=== PATIENT | female | born 1955 | race African-American/Black ===

== ENCOUNTER 2018-04-13 12:00 | Inpatient (IN) | payer OTHER ==
[2018-04-13 12:22] VITALS: BMI 40.0
--- NOTE | 2018-04-13 12:29 | DR.EXTPAIN ---
HPI - Time seen Time seen: 12:20 - PCP Primary Care Physician: madeleine - Complaint/Symptoms Chief Complaint Doctor Comments: Hx. from pt. and is as noted below. Chief Complaint:: pt has redness and warmth to lt lower leg, pt states" I hurt my baby toe last week and the toe nail came off, then my leg and foot started hurting, I had a blood clot before in my rt leg" - Nurses notes reviewed Nurses Notes Review: Yes - Source History Provided: Patient - Mode of arrival Mode of Arrival: Wheelchair - Timing Onset of Chief Complaint: 04/11/18 PMH - PMH Past Medical History: Yes Past Medical History: Diabetes Past Medical History Comment: chronic pain and hx of blood clot in rt leg Past Surgical History: Yes Surgical History: Hysterectomy - Family History History of Family Medical Conditions: No - Social History Does any household member use tobacco: No Alcohol Use: None Do you use any recreational Drugs:: No Lives With: Family Lives Where: Home - infectious screening In the last 2 months have you had wt loss of >10#?: NO Have you had fever, night sweats or hemotysis?: No Have you traveled outside the country in the last 6 months?: No Isolation: Standard ROS - Review of Systems Constitutional: No Symptoms Reported Eyes: No Symptoms Reported ENTM: No Symptoms Reported Respiratoy: No Symptoms Reported Cardiovascular: Edema (Lt. leg) Gastrointestinal/Abdominal: No Symptoms Reported Genitourinary: No Symptoms Reported Neurological: No Symptoms Reported Musculoskeletal: Leg (pain on left) Integumentary: Change in Color (erythema, lt. leg) Hematologic/Lymphatic: No Symptoms Reported Endocrine: No Symptoms Reported Psychiatric: No Symptoms Reported All Other Systems: Reviewed and Negative PE - Vital Signs Vitals: Temperature 97.7 F Pulse Rate 82 Respiratory Rate 18 Blood Pressure 136/86 O2 Sat by Pulse Oximetry 99 - General Limitations: No Limitations General Appearance: Alert, In No Apparent Distress - Head Head Exam: Normal Inspection - Eyes Eye exam: Normal Appearance - ENT ENT Exam: Normal Exam - Neck Neck Exam: Normal Inspection, Full ROM, Trachea Midline - Chest Chest Inspection: Normal Inspection, Symmetric Chest Wall Rise - Respiratory Respiratory Exam: Normal Lung Sounds Bilat - Cardiovascular Cardiovascular Exam: Regular Rate, Normal Rhythm, Normal Heart Sounds, +S1, +S2 - Abdominal Exam Abdominal Exam: Normal Inspection - Extremities Extremities Exam: Tenderness (lt. leg and calf), Edema (Lt. leg) - Lower Extremities Gait Exam: Not Tested/Not Observed - Back Back Exam: Normal Inspection - Neurological Neurological Exam: Alert, Oriented X3, CN II-XII Intact - Psychiatric Psychiatric Exam: Normal Affect, Normal Mood - Skin Skin Exam: Erythema (and warmth lt. leg.) ROR - Labs Reviewed Result Diagrams: 04/13/18 12:04/13/18 12:23 Laboratory: WBC 9.0 X10^3/uL (3.6-10.0) 04/13/18 12: RBC 4.53 X10^6/uL (3.5-5.4) 04/13/18 12: Hgb 12.9 g/dL (12.0-16.0) 04/13/18 12: Hct 38.6 % (36.0-47.0) 04/13/18 12: MCV 85.3 fL (80.0-100.0) 04/13/18 12: MCH 28.6 pg (27.0-34.0) 04/13/18 12: MCHC 33.5 g/dL (33.0-35.0) 04/13/18 12: RDW 14.3 % (11.6-16.5) 04/13/18 12: Plt Count 223 X10^3/uL (150.0-450.0) 04/13/18 12: Plt Count Comment Adequate (ADEQUATE) 04/13/18 12: MPV 7.1 fL (7.4-11.0) L 04/13/18 12:23 Neut % (Auto) 56.1 % (42.0-75.0) 04/13/18 12: Lymph % (Auto) 35.6 % (21.0-51.0) 04/13/18 12: [place] % (Auto) 6.4 % (0.0-13.0) 04/13/18 12: Eos % (Auto) 0.9 % (0.9-2.9) 04/13/18 12: Baso % (Auto) 1.0 % (0.2-1.0) 04/13/18 12:23 Neut # (Auto) 5.0 x10^3/uL (2.2-4.8) H 04/13/18 12:23 Lymph # (Auto) 3.2 X10^3/uL (1.3-2.9) H 04/13/18 12:23 [place] # (Auto) 0.6 x10^3/uL (0.3-0.8) 04/13/18 12:23 Eos # (Auto) 0.1 x10^3/uL (0.0-0.2) 04/13/18 12:23 Baso # (Auto) 0.1 X10^3/uL (0.0-0.1) 04/13/18 12:23 Absolute Nucleated RBC 0.0 /100WBC 04/13/18 12:23 Total Counted 100 04/13/18 12:23 Neutrophils % (Manual) 46 % (39-76) 04/13/18 12:23 Band Neutrophils % 4 % (0-10) 04/13/18 12:23 Lymphocytes % (Manual) 44 % (13-43) H 04/13/18 12:23 Monocytes % (Manual) 5 % (4-9) 04/13/18 12:23 Eosinophils % (Manual) 1 % (0-6) 04/13/18 12:23 Basophils % (Manual) 0 % (0-1) 04/13/18 12:23 Plt Morphology Comment Normal (NORMAL) 04/13/18 12:23 RBC Morphology Normal (NORMAL) 04/13/18 12:23 INR Target Range - 04/13/18 12:23 INR 1.41 (0.8-1.3) H 04/13/18 12:23 APTT 38.4 SECONDS (22.9-36.5) H 04/13/18 12:23 PTT Comment - 04/13/18 12:23 D-Dimer 125 ng/mL (0-400) 04/13/18 12:23 Sodium 135 mmol/L (136-145) L 04/13/18 12:23 Corrected Sodium 136 mmol/L (136-145) 04/13/18 12:23 Potassium 3.7 mmol/L (3.5-5.1) 04/13/18 12:23 Chloride 100 mmol/L (98-107) 04/13/18 12:23 Carbon Dioxide 30.7 mmol/L (21-32) 04/13/18 12:23 BUN 14 mg/dL (7-18) 04/13/18 12:23 Creatinine 1.10 mg/dL (0.55-1.02) H 04/13/18 12:23 Est GFR (MDRD) Af Amer > 60 (>60) 04/13/18 12:23 Est GFR (MDRD) Non-Af 53 (>60) L 04/13/18 12:23 Glucose 159 mg/dL (65-99) H 04/13/18 12:23 Calcium 8.1 mg/dL (8.5-10.1) L 04/13/18 12:23 Corrected Calcium TNP 04/13/18 12:23 Total Bilirubin 1.00 mg/dL (0.2-1.0) 04/13/18 12:23 AST 16 Units/L (15-37) 04/13/18 12:23 ALT 18 Units/L (12-78) 04/13/18 12:23 Alkaline Phosphatase 87 Units/L (46-116) 04/13/18 12:23 B-Natriuretic Peptide 7.4 pg/mL (0-79) 04/13/18 12:23 Total Protein 8.1 g/dL (6.4-8.2) 04/13/18 12:23 Albumin 3.4 g/dL (3.4-5.0) 04/13/18 12:23 Globulin 4.7 g/dL (2.5-4.5) H 04/13/18 12:23 Albumin/Globulin Ratio 0.7 Ratio (1.1-2.1) L 04/13/18 12:23 - XRAY XRAY Interpreted by: Radiologist (non-displaced fracture of distal phalanx of lt. 5th toe.) - Diagnosis Discharge Problem: Phlebitis, Fracture of toe of left foot - Discharge Plan Disposition: ADMITTED INPATIENT Condition: Stable - Follow ups/Referrals Follow ups/Referrals: NICOLE DUNN [Primary Care Provider] - 3 days - Instructions Instructions: Phlebitis, [id number]
[2018-04-13 12:34] LABS: BASOPHILS # (AUTO) 0.1 X10^3/uL (0.0-0.1); EOSINOPHILS # (AUTO) 0.1 x10^3/uL (0.0-0.2); EOSINOPHILS % (AUTO) 0.9 % (0.9-2.9); HEMATOCRIT 38.6 % (36.0-47.0); HEMOGLOBIN 12.9 g/dL (12.0-16.0); LYMPHOCYTES # (AUTO) 3.2 X10^3/uL (1.3-2.9); LYMPHOCYTES % (AUTO) 35.6 % (21.0-51.0); MEAN CORPUSCULAR HEMOGLOBIN 28.6 pg (27.0-34.0); MEAN CORPUSCULAR HGB CONC 33.5 g/dL (33.0-35.0); MEAN CORPUSCULAR VOLUME 85.3 fL (80.0-100.0); MEAN PLATELET VOLUME 7.1 fL (7.4-11.0); MONOCYTES # (AUTO) 0.6 x10^3/uL (0.3-0.8); MONOCYTES % (AUTO) 6.4 % (0.0-13.0); NEUTROPHILS % (AUTO) 56.1 % (42.0-75.0); PLATELET COUNT 223 X10^3/uL (150.0-450.0); RED BLOOD COUNT 4.53 X10^6/uL (3.5-5.4); RED CELL DISTRIBUTION WIDTH 14.3 % (11.6-16.5)
[2018-04-13 12:44] LABS: ALANINE AMINOTRANSFERASE 18 Units/L (12-78); ALBUMIN 3.4 g/dL (3.4-5.0); ALKALINE PHOSPHATASE 87 Units/L (46-116); ASPARTATE AMINO TRANSFERASE 16 Units/L (15-37); BLOOD UREA NITROGEN 14 mg/dL (7-18); CALCIUM 8.1 mg/dL (8.5-10.1); CARBON DIOXIDE 30.7 mmol/L (21-32); CHLORIDE 100 mmol/L (98-107); COR NA(FOR HYPERGLY) 136 mmol/L (136-145); SODIUM 135 mmol/L (136-145); TOTAL PROTEIN 8.1 g/dL (6.4-8.2); eGFR BLACK RACES > 60 (>60); eGFR NON BLACK RACES 53 (>60)
--- NOTE | 2018-04-13 12:46 | RAD ---
HISTORY: Injury to left 5th toe. Left foot pain. Study: Left foot: Three views Comparison: None Findings: Tarsal, metatarsal and phalangeal alignment is normal. Mild degenerative changes noted in the 1st ta rsal metatarsal joint with [id number] 1st metatarsal-phalangeal joint. Minimal degenerative ch anges present in several of the interphalangeal joints. There appears to be moderately severe soft t issue swelling over the dorsum of the mid and distal foot. There is suggestion of a nondisplaced phalangeal tuft fracture involving the 5th digit. No other acu te bony abnormalities are identified. Moderate calcaneal spurring is noted. Moderate enthesopathy i s noted at the Achilles tendon insertion. There is a mild diffuse degenerative change in the midfoot . IMPRESSION: 1. Degenerative change in the left foot as described above. 2. Findings suggesting a nondisplaced phalangeal tuft fracture involving the distal phalanx of the 5 th toe. 3. Extensive soft tissue swelling is present. Reported By:
[2018-04-13 13:00] LABS: BAND NEUTROPHILS % 4 % (0-10); BASOPHILS % (MANUAL) 0 % (0-1); PLATELET MORPHOLOGY COMMENT NORMAL (NORMAL)
[2018-04-13] MEDS ORDERED: ANCEF VIAL 1 GM 1 GM in NS 100 ML IV + SPIKE MINIBAG* 100 ML IV ONE (14:10)
[2018-04-13] MEDS ORDERED: HumuLIN R SUBCUT PRN (14:15)
[2018-04-13] MEDS ORDERED: NS 1000 ML 1,000 ML ONE (14:17)
[2018-04-13] MEDS ORDERED: ANCEF 1 GM IV PREMIX* 1 GM/50 ML BAG IV ONE (14:17)
[2018-04-13] MEDS: NS 1000 ML 1,000 ML IV SCH (14:26)
[2018-04-13] MEDS: NORCO 10/325 TAB PO SCH ×2 (17:24→23:32)
[2018-04-13 20:21] LABS: BILIRUBIN,URINE NEGATIVE (NEGATIVE); BLOOD/HEMOGLOBIN,URINE 3+ (NEGATIVE); GLUCOSE, URINE NEGATIVE (NEGATIVE); KETONES,URINE NEGATIVE (NEGATIVE); LEUKOCYTE ESTERASE ,URINE 1+ (NEGATIVE); NITRITES,URINE POSITIVE (NEGATIVE); PROTEIN,URINE NEGATIVE (NEGATIVE); UROBILINOGEN,URINE NORMAL (NORMAL)
[2018-04-13 20:48] LABS: APPEARANCE,URINE CLOUDY (CLEAR); BACTERIA,URINE 3+ /HPF (NEGATIVE); COLOR,URINE YELLOW (YELLOW); SQUAMOUS EPITHELIAL CELL,UR FEW /HPF (NEGATIVE)
[2018-04-13] MEDS: ANCEF VIAL 1 GM 1 GM in NS 100 ML IV + SPIKE MINIBAG* 100 ML IV SCH (21:27)
[2018-04-14] MEDS: NS 1000 ML 1,000 ML IV SCH ×2 (04:38→20:07)
[2018-04-14] MEDS: ANCEF VIAL 1 GM 1 GM in NS 100 ML IV + SPIKE MINIBAG* 100 ML IV SCH (07:15)
[2018-04-14] MEDS: NORCO 10/325 TAB PO SCH ×3 (07:15→22:45)
[2018-04-14 07:39] LABS: ALANINE AMINOTRANSFERASE 15 Units/L (12-78); ALBUMIN 2.7 g/dL (3.4-5.0); ALKALINE PHOSPHATASE 73 Units/L (46-116); ASPARTATE AMINO TRANSFERASE 10 Units/L (15-37); BLOOD UREA NITROGEN 13 mg/dL (7-18); CALCIUM 7.6 mg/dL (8.5-10.1); CARBON DIOXIDE 27.4 mmol/L (21-32); CHLORIDE 105 mmol/L (98-107); COR CA(FOR HYPOALB) 8.6 mg/dL (8.5-10.1); COR NA(FOR HYPERGLY) 139 mmol/L (136-145); CREATININE 0.96 mg/dL (0.55-1.02); SODIUM 139 mmol/L (136-145); eGFR BLACK RACES > 60 (>60); eGFR NON BLACK RACES > 60 (>60)
[2018-04-14 08:32] LABS: BASOPHILS # (AUTO) 0.1 X10^3/uL (0.0-0.1); BASOPHILS % (AUTO) 0.8 % (0.2-1.0); EOSINOPHILS # (AUTO) 0.2 x10^3/uL (0.0-0.2); HEMATOCRIT 37.7 % (36.0-47.0); HEMOGLOBIN 12.3 g/dL (12.0-16.0); LYMPHOCYTES # (AUTO) 3.8 X10^3/uL (1.3-2.9); LYMPHOCYTES % (AUTO) 49.2 % (21.0-51.0); MEAN CORPUSCULAR HEMOGLOBIN 28.4 pg (27.0-34.0); MEAN CORPUSCULAR HGB CONC 32.6 g/dL (33.0-35.0); MEAN CORPUSCULAR VOLUME 86.9 fL (80.0-100.0); MEAN PLATELET VOLUME 8.1 fL (7.4-11.0); MONOCYTES # (AUTO) 0.9 x10^3/uL (0.3-0.8); MONOCYTES % (AUTO) 11.7 % (0.0-13.0); NEUTROPHILS # (AUTO) 2.7 x10^3/uL (2.2-4.8); NEUTROPHILS % (AUTO) 35.3 % (42.0-75.0); PLATELET COUNT 190 X10^3/uL (150.0-450.0); RED BLOOD COUNT 4.33 X10^6/uL (3.5-5.4); RED CELL DISTRIBUTION WIDTH 14.9 % (11.6-16.5); WHITE BLOOD COUNT 7.8 X10^3/uL (3.6-10.0)
[2018-04-14 08:57] LABS: ANISOCYTOSIS SLIGHT; PLATELET MORPHOLOGY COMMENT NORMAL (NORMAL)
[2018-04-14] MEDS ORDERED: COUMADIN TAB 7.5 MG PO SCH ×2 (09:00→17:00)
[2018-04-14] MEDS ORDERED: ZOFRAN INJ 4 MG VIAL IVP ONE (09:49)
--- NOTE | 2018-04-14 09:53 | DR.H&P ---
H&P - History & Physical for Day of: H&P Date: 04/14/18 - Chief Complaint Chief Complaint: LLE PAIN, REDNESS SWELLING, DYSURIA - Allergies Allergies/Adverse Reactions: Allergies Allergy/AdvReac Type Severity Reaction Status Date / Time No Known Drug Allergies Allergy Verified 04/13/18 12:03 - History of Present Illness History of Present Illness: 63 BF ER ADMISSION WITH CO LLE REDNESS AND SWELLING , AFTER INJURY LEFT 5TH TOE. PT ALSO CO DYSURIA AND FOUL ODOR. PT HAD UTI IN ER. PT HAS PMH OF HTN, DM. PT ADMITTED FOR IV ATBX FOR CELLULITIS, URINE CULTURE COLLECTED. - Past Medical History Past Medical History: Diabetes, Hypertension - Past Surgical History Surgical History: Hysterectomy, Other - Family History Family Medical History: Diabetes Mellitus, Coronary Artery Disease, Hypertension - Social History Does patient currently use any type of tobacco product: No Have you used tobacco products in the last 12 months: No Type of Tobacco Use: None Does any household member use tobacco: No Alcohol Use: Occasionally Drug Use: Prescription Drugs - Medications Home Medications: Hydrocodone/Acetaminophen [Lorcet Hd 10-325 mg Tablet] 1 each PO Q8H 04/13/18 [ History Confirmed 04/13/18] Warfarin Sodium [Warfarin Sodium] 7.5 mg PO DAILY 04/13/18 [History Confirmed ] - Review of Systems Constitutional: No Symptoms Reported, Malaise Eyes: No Symptoms Reported ENT: No Symptoms Reported Respiratory: No Symptoms Reported Cardiovascular: Edema Gastrointestinal: Nausea Genitourinary: Dysuria Musculoskeletal: Leg Pain Skin: Other (LLE REDNESS) Neurological: No Symptoms Reported - Physical Exam Vital Signs: Temperature 98.6 F Pulse Rate [Left Brachial] 51 Pulse Rate 82 Respiratory Rate 16 Blood Pressure [Left Arm] 111/61 Blood Pressure 136/86 O2 Sat by Pulse Oximetry 99 Oriented: Normal Eyes: Normal Ear: Normal Nose: Normal Throat: Normal Respiratory: RLL Diminished, LLL Diminished Cardiovascular: Normal : Normal Auscultation: Bowel Sounds: Normal Palpation: Normal Tenderness: Suprapubic, Mild Skin: Normal, Red, Tender (LLE), Hot Musculoskeletal: Left, Leg, Swelling, Tender Affect: Anxious Speech Pattern: Clear, Appropriate - Assessment/Plan (1) Cellulitis Status: Acute Plan: ADMIT, IV ATBX, BP MONITORING. VERIFY HOME MEDS. URINE CULTURE. WOUND CARE, REPEAT AM LABS. DAILY PT/INR (2) UTI (urinary tract infection) Status: Acute (3) Fracture of toe of left foot Status: Acute (4) Phlebitis Status: Acute
[2018-04-14] MEDS ORDERED: FLAGYL TAB 500 MG PO SCH (10:00)
[2018-04-14] MEDS ORDERED: TEFLARO IV SCH (10:00)
[2018-04-14] MEDS ORDERED: ZOFRAN INJ 4 MG VIAL ONE (10:11)
[2018-04-14] MEDS: TEFLARO 600 MG in NS 100 ML IV + SPIKE MINIBAG* 100 ML IV SCH ×2 (10:18→20:20)
[2018-04-14] MEDS ORDERED: PHARMACY CONSULT - VANCOMYCIN XX SCH (12:00)
--- NOTE | 2018-04-14 12:07 | VAS ---
HISTORY: 63-year-old female with injury to the 5th toe and left foot pain with cellulitis of the left leg. Study: Duplex Doppler of the venous system left lower extremity. Comparison: None. TECHNIQUE: Multiple ahmadi scale and color flow Doppler images of the deep venous system were obtained of the left lower extremity. FINDINGS: The deep venous system of the left lower extremity was evaluated from the level of the common femoral vein through the popliteal vein. Normal color flow and augmentation can be observed. In addition, normal compression is seen throughout the deep venous system. IMPRESSION: 1. Negative for DVT. Reported By:
[2018-04-14 12:26] LABS: CHLAMYDIA TRACH URINE NOT DETECTED (NOT DETECT)
[2018-04-14] MEDS: GLUCOPHAGE XR PO SCH ×2 (12:34→21:10)
[2018-04-14] MEDS ORDERED: VANCOMYCIN 1 GM PREMIX (ADDVANTAGE) 250 ML IV ONE (18:14)
[2018-04-14] MEDS: VANCOMYCIN 1 GM PREMIX (ADDVANTAGE) 250 ML IV SCH (18:19)
[2018-04-15] MEDS ORDERED: FLAGYL TAB 250 MG PO ONE (04:44)
[2018-04-15] MEDS ORDERED: VANCOMYCIN HCL 1 GM VIAL ONE (04:51)
[2018-04-15] MEDS ORDERED: NS 250 ML IV 250 ML IV ONE (04:53)
[2018-04-15] MEDS: VANCOMYCIN 1 GM PREMIX (ADDVANTAGE) 250 ML IV SCH ×2 (05:24→18:50)
[2018-04-15] MEDS: NS 1000 ML 1,000 ML IV SCH ×3 (05:25→20:32)
[2018-04-15] MEDS: NORCO 10/325 TAB PO SCH ×3 (07:22→20:27)
[2018-04-15] MEDS ORDERED: MILK OF MAGNESIA PO PRN (07:28)
[2018-04-15 07:33] LABS: BASOPHILS # (AUTO) 0.1 X10^3/uL (0.0-0.1); BASOPHILS % (AUTO) 0.9 % (0.2-1.0); EOSINOPHILS # (AUTO) 0.2 x10^3/uL (0.0-0.2); HEMATOCRIT 34.2 % (36.0-47.0); HEMOGLOBIN 11.5 g/dL (12.0-16.0); LYMPHOCYTES # (AUTO) 2.6 X10^3/uL (1.3-2.9); LYMPHOCYTES % (AUTO) 45.7 % (21.0-51.0); MEAN CORPUSCULAR HEMOGLOBIN 28.7 pg (27.0-34.0); MEAN CORPUSCULAR HGB CONC 33.6 g/dL (33.0-35.0); MEAN CORPUSCULAR VOLUME 85.5 fL (80.0-100.0); MEAN PLATELET VOLUME 7.6 fL (7.4-11.0); MONOCYTES # (AUTO) 0.6 x10^3/uL (0.3-0.8); MONOCYTES % (AUTO) 10.5 % (0.0-13.0); NEUTROPHILS # (AUTO) 2.3 x10^3/uL (2.2-4.8); NEUTROPHILS % (AUTO) 39.9 % (42.0-75.0); PLATELET COUNT 203 X10^3/uL (150.0-450.0); RED CELL DISTRIBUTION WIDTH 14.4 % (11.6-16.5); WHITE BLOOD COUNT 5.7 X10^3/uL (3.6-10.0)
[2018-04-15 07:44] LABS: ALANINE AMINOTRANSFERASE 14 Units/L (12-78); ALBUMIN 2.6 g/dL (3.4-5.0); ALKALINE PHOSPHATASE 71 Units/L (46-116); ASPARTATE AMINO TRANSFERASE 12 Units/L (15-37); BLOOD UREA NITROGEN 13 mg/dL (7-18); CALCIUM 7.3 mg/dL (8.5-10.1); CARBON DIOXIDE 26.7 mmol/L (21-32); CHLORIDE 107 mmol/L (98-107); COR CA(FOR HYPOALB) 8.4 mg/dL (8.5-10.1); COR NA(FOR HYPERGLY) 140 mmol/L (136-145); SODIUM 140 mmol/L (136-145); TOTAL PROTEIN 6.6 g/dL (6.4-8.2); eGFR BLACK RACES > 60 (>60); eGFR NON BLACK RACES 59 (>60)
[2018-04-15] MEDS ORDERED: COLACE CAP 100 MG PO SCH (08:00)
[2018-04-15] MEDS: GLUCOPHAGE XR PO SCH ×3 (08:05→20:32)
[2018-04-15] MEDS: TEFLARO 600 MG in NS 100 ML IV + SPIKE MINIBAG* 100 ML IV SCH (08:05)
[2018-04-15] MEDS: ROCEPHIN VIAL 1 GM 1 GM in NS 100 ML IV + SPIKE MINIBAG* 100 ML IV SCH (17:30)
[2018-04-15] MEDS: COLACE CAP 100 MG PO SCH (20:26)
[2018-04-15] MEDS: COUMADIN TAB 7.5 MG PO SCH (20:26)
[2018-04-16] MEDS: NORCO 10/325 TAB PO SCH ×4 (00:45→22:03)
[2018-04-16] MEDS: NS 1000 ML 1,000 ML IV SCH ×4 (00:58→20:15)
[2018-04-16 05:58] LABS: CREATININE 0.95 mg/dL (0.55-1.02); VANCOMYCIN,TROUGH 7.7 ug/mL (15-20)
[2018-04-16 06:10] LABS: BASOPHILS % (AUTO) 0.8 % (0.2-1.0); EOSINOPHILS # (AUTO) 0.2 x10^3/uL (0.0-0.2); EOSINOPHILS % (AUTO) 3.4 % (0.9-2.9); HEMATOCRIT 34.9 % (36.0-47.0); HEMOGLOBIN 11.7 g/dL (12.0-16.0); LYMPHOCYTES # (AUTO) 2.7 X10^3/uL (1.3-2.9); LYMPHOCYTES % (AUTO) 46.9 % (21.0-51.0); MEAN CORPUSCULAR HEMOGLOBIN 28.6 pg (27.0-34.0); MEAN CORPUSCULAR HGB CONC 33.7 g/dL (33.0-35.0); MEAN PLATELET VOLUME 7.2 fL (7.4-11.0); MONOCYTES # (AUTO) 0.6 x10^3/uL (0.3-0.8); MONOCYTES % (AUTO) 10.9 % (0.0-13.0); NEUTROPHILS # (AUTO) 2.2 x10^3/uL (2.2-4.8); PLATELET COUNT 221 X10^3/uL (150.0-450.0); RED CELL DISTRIBUTION WIDTH 14.3 % (11.6-16.5); WHITE BLOOD COUNT 5.8 X10^3/uL (3.6-10.0)
[2018-04-16 06:16] LABS: ALANINE AMINOTRANSFERASE 13 Units/L (12-78); ALBUMIN 2.5 g/dL (3.4-5.0); ALKALINE PHOSPHATASE 70 Units/L (46-116); ASPARTATE AMINO TRANSFERASE 13 Units/L (15-37); BLOOD UREA NITROGEN 12 mg/dL (7-18); CALCIUM 7.5 mg/dL (8.5-10.1); CHLORIDE 106 mmol/L (98-107); COR CA(FOR HYPOALB) 8.7 mg/dL (8.5-10.1); CREATININE 0.97 mg/dL (0.55-1.02); SODIUM 139 mmol/L (136-145); TOTAL PROTEIN 6.7 g/dL (6.4-8.2); eGFR BLACK RACES > 60 (>60); eGFR NON BLACK RACES > 60 (>60)
[2018-04-16] MEDS: VANCOMYCIN 1 GM PREMIX (ADDVANTAGE) 250 ML IV SCH (06:29)
[2018-04-16] MEDS: GLUCOPHAGE XR PO SCH ×2 (08:15→20:15)
[2018-04-16] MEDS: ROCEPHIN VIAL 1 GM 1 GM in NS 100 ML IV + SPIKE MINIBAG* 100 ML IV SCH (08:16)
[2018-04-16] MEDS: VANCOMYCIN HCL 1 GM VIAL 1 GM in D5W 250 ML IV 250 ML IV SCH ×4 (09:09→23:03)
[2018-04-16] MEDS ORDERED: BUTT CREAM (COMPOUND) ONE (14:39)
[2018-04-16] MEDS ORDERED: BUTT CREAM (COMPOUND) TOP PRN (14:44)
[2018-04-16] MEDS: COUMADIN TAB 7.5 MG PO SCH (20:14)
[2018-04-16] MEDS: COLACE CAP 100 MG PO SCH (20:14)
[2018-04-17 06:22] LABS: BASOPHILS % (AUTO) 0.8 % (0.2-1.0); EOSINOPHILS # (AUTO) 0.2 x10^3/uL (0.0-0.2); EOSINOPHILS % (AUTO) 3.1 % (0.9-2.9); HEMOGLOBIN 12.1 g/dL (12.0-16.0); LYMPHOCYTES # (AUTO) 2.7 X10^3/uL (1.3-2.9); LYMPHOCYTES % (AUTO) 45.6 % (21.0-51.0); MEAN CORPUSCULAR HEMOGLOBIN 28.7 pg (27.0-34.0); MEAN CORPUSCULAR HGB CONC 33.7 g/dL (33.0-35.0); MEAN CORPUSCULAR VOLUME 85.1 fL (80.0-100.0); MEAN PLATELET VOLUME 7.2 fL (7.4-11.0); MONOCYTES # (AUTO) 0.6 x10^3/uL (0.3-0.8); MONOCYTES % (AUTO) 10.1 % (0.0-13.0); NEUTROPHILS # (AUTO) 2.4 x10^3/uL (2.2-4.8); NEUTROPHILS % (AUTO) 40.4 % (42.0-75.0); PLATELET COUNT 232 X10^3/uL (150.0-450.0); RED BLOOD COUNT 4.22 X10^6/uL (3.5-5.4); RED CELL DISTRIBUTION WIDTH 14.2 % (11.6-16.5); VANCOMYCIN,TROUGH 13.6 ug/mL (15-20); WHITE BLOOD COUNT 5.9 X10^3/uL (3.6-10.0)
[2018-04-17] MEDS: VANCOMYCIN HCL 1 GM VIAL 1 GM in D5W 250 ML IV 250 ML IV SCH ×2 (06:34→13:28)
[2018-04-17] MEDS: NORCO 10/325 TAB PO SCH ×2 (06:35→15:58)
[2018-04-17 06:51] LABS: ALANINE AMINOTRANSFERASE 12 Units/L (12-78); ALBUMIN 2.6 g/dL (3.4-5.0); ALKALINE PHOSPHATASE 74 Units/L (46-116); ASPARTATE AMINO TRANSFERASE 16 Units/L (15-37); BLOOD UREA NITROGEN 11 mg/dL (7-18); CALCIUM 7.8 mg/dL (8.5-10.1); CARBON DIOXIDE 25.9 mmol/L (21-32); CHLORIDE 104 mmol/L (98-107); COR CA(FOR HYPOALB) 8.9 mg/dL (8.5-10.1); CREATININE 0.91 mg/dL (0.55-1.02); SODIUM 137 mmol/L (136-145); TOTAL PROTEIN 6.9 g/dL (6.4-8.2); eGFR BLACK RACES > 60 (>60); eGFR NON BLACK RACES > 60 (>60)
[2018-04-17] MEDS: ROCEPHIN VIAL 1 GM 1 GM in NS 100 ML IV + SPIKE MINIBAG* 100 ML IV SCH (09:02)
[2018-04-17] MEDS: GLUCOPHAGE XR PO SCH (09:02)
[2018-04-17] MEDS: NS 1000 ML 1,000 ML IV SCH ×2 (09:03→17:25)
[2018-04-17 12:19] VITALS: BP 153/82
== END 2018-04-17 16:10 | disposition home or self-care (01) | DRG 603 ==
LOC: ER 12:12 → OBS 14:12 → ICU 04-15 14:57
PROVIDERS: ADMIT Obstetrics & Gynecology Obstetrics; ATTEND Obstetrics & Gynecology Obstetrics
DX: L03.116 Cellulitis of left lower limb (principal); N39.0 Urinary tract infection, site not specified; B96.29 Other Escherichia coli [E. coli] as the cause of diseases classified elsewhere; E11.65 Type 2 diabetes mellitus with hyperglycemia; S92.912A Unspecified fracture of left toe(s), initial encounter for closed fracture; I25.10 Atherosclerotic heart disease of native coronary artery without angina pectoris; N76.0 Acute vaginitis; R79.1 Abnormal coagulation profile
CPT/HCPCS: 36415; 73630; 80053; 80202; 81001; 82565; 83036; 83880; 85025; 85378; 85610; 85730; 87086; 87088; 87186; 87491; 87591; 93971; 96365; 96367; 96374; 99283; 99284; A4216; A4222; J0690; J0696; J0712; J2405; J3370